=== PATIENT | female | born 1980 | race Caucasian/White ===

== ENCOUNTER → 2017-02-22 | Outpatient (CLI) | payer BC ==
--- NOTE | 2017-02-22 09:04 | DIAGNOSTIC IMAGING REPORT ---
LEFT KNEE 4 OR MORE HISTORY: 36 years-old Female acute left-sided KNEE PAIN COMPARISON: None available TECHNIQUE: Frontal, lateral, tunnel and sunrise views of the left knee. FINDINGS: There is no acute fracture, dislocation or significant degenerative changes of the left knee. No intra-articular loose body is seen. There is a small to moderate left knee joint effusion. IMPRESSION: Small to moderate left knee joint effusion without acute bony abnormality. The above report was generated using voice recognition software. It may contain grammatical, syntax or spelling errors. Electronically signed by: Cristofer Chavez M.D. 02/22/2017 9:03 AM Dictated Date/Time: 02/22/2017 9:02 AM
== END | disposition home or self-care (01) ==
LOC: C.RDSM 08:40
PROVIDERS: ATTEND Family Medicine
DX: M25.562 Pain in left knee (principal)

== ENCOUNTER → 2017-03-03 | Outpatient (CLI) | payer BC ==
--- NOTE | 2017-03-03 11:22 | DIAGNOSTIC IMAGING REPORT ---
LEFT KNEE MRI HISTORY: Left knee pain. COMPARISON STUDY: None. TECHNIQUE: Multiplanar multisequence MRI of the left knee was performed according to standard department protocol without the use of contrast. FINDINGS: Menisci: The medial and lateral menisci are intact. Ligaments: The ACL and LCL are intact. There is a high-grade partial versus full-thickness tear of the PCL. There is mild edema surrounding the intact MCL consistent with a grade I injury. Extensor mechanism: The quadriceps tendon and patellar ligament are intact. Articular cartilage and bone: Cartilage spaces are well-maintained. Focal marrow edema within the medial aspect of the medial tibial plateau. On the coronal T1 sequences there suggestion of a tiny nondisplaced fracture at the medial lip of the medial tibial plateau. Joint effusion: Small. Soft tissues: Small popliteal cyst. IMPRESSION: 1. High-grade partial versus full-thickness PCL tear. 2. Grade I MCL injury (sprain). 3. Tiny nondisplaced fracture at the medial lip of the medial tibial plateau. 4. Small joint effusion. Electronically signed by: Jignesh Hernández M.D. 03/03/2017 11:21 AM Dictated Date/Time: 03/03/2017 11:15 AM
== END | disposition home or self-care (01) ==
LOC: C.MRI 09:59
PROVIDERS: ATTEND Family Medicine
DX: S83.522A Sprain of posterior cruciate ligament of left knee, initial encounter (principal); S83.412A Sprain of medial collateral ligament of left knee, initial encounter; S82.135A Nondisplaced fracture of medial condyle of left tibia, initial encounter for closed fracture; X58.XXXA Exposure to other specified factors, initial encounter

== ENCOUNTER → 2017-03-11 | Outpatient (CLI) | payer BC ==
[2017-03-14 10:23] LABS: CHLAMYDIA TRACH RNA*** NOT DETECTED (NOT DETECTED); GC (NEIS GONORRHOEAE)RNA** NOT DETECTED (NOT DETECTED)
== END | disposition home or self-care (01) ==
LOC: C.LAB1850 09:05
PROVIDERS: ATTEND Physician Assistant
DX: Z11.3 Encounter for screening for infections with a predominantly sexual mode of transmission (principal)

== ENCOUNTER → 2017-03-11 | Outpatient (CLI) | payer BC | END | disposition home or self-care (01) | LOC: C.PAPS 10:56 | PROVIDERS: ATTEND Physician Assistant | DX: Z01.419 Encounter for gynecological examination (general) (routine) without abnormal findings (principal) ==